=== PATIENT | female | born 1930 | race Caucasian/White ===

== ENCOUNTER 2016-10-14 13:14 | Emergency (ER) | payer OTHER, MEDICAID ==
--- NOTE | 2016-10-14 13:23 | EDPHY ---
H & P Time Seen by Provider: 10/14/16 13:18 HPI/ROS: CHIEF COMPLAINT: Left tibia fracture HISTORY OF PRESENT ILLNESS: 86-year-old female who is bed-bound, history of dementia, arrives via ambulance from [facility] after a radiographically confirmed proximal tibia fracture. Specific etiology not completely clear. There are no reports of trauma or fall. No reports of periods of immobility on the floor. No head injury. Mentating per baseline PRIMARY CARE PROVIDER: REVIEW OF SYSTEMS: A ten point review of systems was performed and is negative with the exception of the items mentioned in the HPI PAST MEDICAL/SURGICAL HISTORY: Dementia. Bed-bound. Chronic peripheral muscular contracture. SOCIAL HISTORY: Lives at [facility] PHYSICAL EXAM 1) GENERAL: Well-developed, well-nourished, alert and oriented x1 (baseline per EMS). Appears to be in no acute distress. Answering questions appropriately. 2) HEAD: Normocephalic, atraumatic 3) HEENT: Pupils equal, round, reactive to light bilaterally. Negative Horners. Nasopharynx, oropharynx, clear. No deformity or angulation of nose. No septal hematoma. No rhinorrhea. No oral trauma. Ears bilaterally with normal tympanic membranes. No hemotympanum. No fluid or blood in the external auditory canal. No raccoon eyes. No Aparicio sign. . 4) NECK: No cervical collar is on. Posterior cervical spine is nontender, no stepoff, no effusion. Full range of motion which does not elicit any midline cervical spine pain, no posterior midline tenderness, no step-off. 5) LUNGS: Clear to auscultation bilaterally, no wheezes, no rhonchi, no retractions. No obvious signs of trauma. No chest wall pain. No flaring, no grunting. Moving symmetrically. No crepitus. 6) HEART: Regular rate and rhythm, 7) ABDOMEN: No guarding, no rebound, no focal tenderness, no peritoneal signs, no signs of trauma, no ecchymosis 8) MUSCULOSKELETAL: Left lower extremity: Ecchymosis to the medial knee with associated tenderness. Tender to palpation proximal femur. Unable to assess leg length secondary to patient's chronic contracture. Normal color temperature distally with brisk capillary refill common DP PT pulses present. Compartments are soft otherwise, Moving all extremities, no focal areas of tenderness, no obvious trauma. 9) BACK: No midline vertebral tenderness, no fluctuance, no step-off, no obvious trauma, no visual or palpable abnormality. 10) SKIN: No laceration. No abrasion DIFFERENTIAL DIAGNOSIS: in no particular order including but not limited to fracture, sprain, dislocation Constitutional: Initial Vital Signs Temperature (C) 36.4 C 10/14/16 13:23 Heart Rate 83 10/14/16 13:23 Respiratory Rate 15 10/14/16 13:23 Blood Pressure 127/60 H 10/14/16 13:23 O2 Sat (%) 96 10/14/16 13:23 O2 Delivery Mode Room Air Allergies/Adverse Reactions: No Known Allergies Allergy (Unverified 10/14/16 13:20) Home Medications: Medication Instructions Recorded Atorvastatin Calcium 10/14/16 Escitalopram Oxalate 10/14/16 Lisinopril 10/14/16 Morphine Sulfate 10/14/16 Oxycodone HCl 10/14/16 Phenytoin 10/14/16 Ramelteon 10/14/16 Medical Decision Making - Diagnostics Imaging Results: Imaging Impressions Femur X-Ray 10/14/16 13:23 Impression: No evidence for acute fracture. Chronic findings as above. Left Femur, 2 Views History: Left leg pain. Findings: Diffuse demineralization. Mild degenerative change is seen in the left hip. No evidence for acute fracture of the femur. Vascular calcifications are seen indicating atherosclerotic disease. Impression: No evidence for acute osseous abnormality. Hip X-Ray 10/14/16 13:23 Impression: No evidence for acute fracture. Chronic findings as above. Left Femur, 2 Views History: Left leg pain. Findings: Diffuse demineralization. Mild degenerative change is seen in the left hip. No evidence for acute fracture of the femur. Vascular calcifications are seen indicating atherosclerotic disease. Impression: No evidence for acute osseous abnormality. Tibia/Fibula X-Ray 10/14/16 13:23 Impression: Contour irregularity of the tibial metaphysis suspicious for fracture, with osteopenia limiting assessment. Images reviewed myself Procedures: Procedure: Splint A knee immobilizer splint was applied by ER security installation sales technician. After application of the splint I returned and re-examined the patient. The splint was adequately immobilizing the joint and distal to the splint the patient's circulation and sensation were intact. Patient shows no signs of compartment syndrome. Was given orthopedic precautions. ED Course/Re-evaluation: 2:54 p.m. phone consultation with orthopedic PA Demetra Durán who agrees with the plan of knee immobilizer and discharge back [facility]. Care and management in consultation with secondary supervising physician Dr Valencia . 3:10 p.m.: Patient re-evaluated, discussed with the granddaughter who is at bedside. Plan will be knee immobilizer and discharged back to [facility]. She is reexamined is neurovascularly intact. She has soft compartments. Doubt DVT. Doubt compartment syndrome. Usual and customary orthopedic precautions and instructions provided Departure - Departure Disposition: Home, Routine, Self-Care Clinical Impression: Fracture of proximal end of left tibia Qualifiers: Encounter type: initial encounter Fracture type: closed Fracture morphology: other fracture Qualified Code(s): S82.192A - Other fracture of upper end of left tibia, initial encounter for closed fracture Condition: Good Instructions: Leg Fracture (ED) Additional Instructions: Return to the ER immediately if you experience discoloration, have worsening pain, numbness, tingling, or any other symptoms that concern you. If you received x-rays in the emergency department today, be advised, that ligamentous , tendon, muscular, and other non-bony injury cannot be fully ruled out. Try to keep your affected extremity elevated above the level of your chest, and keep cold packs on the affected area, for the next 48 hours. Referrals: Demetra Durán PA [[facility]] - 5-7 days, call for appt.
[2016-10-14 13:26] VITALS: O2SAT 96
[2016-10-14 15:54] VITALS: BP 124/76; PULSE 81; RESP 17; TEMP 98.1
== END 2016-10-14 15:53 | disposition home or self-care (01) ==
LOC: EDUNIT#
DX: S82.192A Other fracture of upper end of left tibia, initial encounter for closed fracture (principal); X58.XXXA Exposure to other specified factors, initial encounter
CPT/HCPCS: 73502; 73551; 73590; 99283; L1830